=== PATIENT | female | born 1980 | race American Indian/Alaskan Native ===

== ENCOUNTER 2019-04-11 12:44 | Emergency (ER) | payer MEDICAID, SELFPAY ==
[2019-04-11] MEDS ORDERED: BOOSTRIX IM ONE (13:07)
--- NOTE | 2019-04-11 13:09 | Event Note ---
ED Screening Note Date of service: 04/11/19 Time: 13:06 ED Screening Note: This is a 38 y.o. F. that presents to the ER with laceration to left side of upper lip. Patient reports tripping up the stairs. Tetanus not UTD Denies loc Current marijuana smoker This initial assessment/diagnostic orders/clinical plan/treatment(s) is/are subject to change based on patients health status, clinical progression and re- assessment by fellow clinical providers in the ED. Further treatment and workup at subsequent clinical providers discretion. Patient/guardian urged not to elope from the ED as their condition may be serious if not clinically assessed and managed. Initial orders include:
[2019-04-11] MEDS ORDERED: IBUPROFEN PO ONE (14:01)
--- NOTE | 2019-04-11 14:24 | Emergency Department Report ---
ED Laceration HPI - HPI Chief Complaint: Multiple Trauma Stated Complaint: FACE INJURY Time Seen by Provider: 04/11/19 13:05 Occurred When: Today Severity: moderate Tetanus Status: Not up to Date Laceration Symptoms: Yes Pain, No Foreign Body Sensation, No Numbness, No W eakness Other History: This is a 38-year-old female who presents to ED complaining of sleep upstairs while she was going upstairs today. Patient states she lost her footing and slipped and fell and hit her upper lip on the step. She denies falling and, loss of consciousness or hitting her head. ED Review of Systems ROS: Stated complaint: FACE INJURY Other details as noted in HPI Comment: All other systems reviewed and negative ED Past Medical Hx - Past Medical History Previous Medical History?: No Hx Hypertension: No Hx CVA: No Hx Heart Attack/AMI: No Hx Congestive Heart Failure: No Hx Diabetes: No Hx Deep Vein Thrombosis: No Hx Pulmonary Embolism: No Hx GERD: No Hx Liver Disease: No Hx Renal Disease: No Hx of Cancer: No Hx Sickle Cell Disease: No Hx Arthritis: No Hx Headaches / Migraines: No Hx Seizures: No Hx Kidney Stones: No Hx Psychiatric Treatment: No Hx Asthma: No Hx COPD: No Hx Tuberculosis: No Hx Dementia: No Hx HIV: No - Surgical History Past Surgical History?: No Hx Coronary Stent: No Hx Open Heart Surgery: No Hx Pacemaker: No Hx Internal Defibrillator: No Hx Cholecystectomy: No Hx Appendectomy: No Hx Breast Surgery: No - Social History Smoking Status: Current Some Day Smoker Substance Use Type: None - Medications Home Medications: Home Medications Medication Instructions Recorded Confirmed Last Taken Type Ibuprofen [Motrin] 800 mg PO Q8HR #30 tablet 04/11/19 Unknown Rx cephALEXin [Keflex] 500 mg PO Q12HR #10 cap 04/11/19 Unknown Rx Laceration Physical Exam - Exam General: Vital signs noted. No distress. Alert and acting appropriately. Full Body Front + Back: 1 - small laceration about 1 cm to the area, bleeding controlled Laceration Exam: Yes Normal Distal CMS, No Foreign Body, No Exposed Tendon, Vessel, or Nerve, No Tendon Injury ED Course Vital Signs 04/11/19 13:06 Temperature 98.3 F Pulse Rate 84 Respiratory 15 Rate Blood Pressure 140/88 [Left] O2 Sat by Pulse 98 Oximetry ED Medical Decision Making - Medical Decision Making 38-year-old female presents with facial laceration from a slip and fall. The 1cm laceration wound was prepped and draped in sterile fashion. Anesthesia was achieved with 1mL of 1% lidocaine. The wound was irrigated with 100cc NS and explored. There were no foreign bodies The wound was reapproximated in 1 inner layer with continuous sutures suing with 3-0 absorbable Vicryl sutures in the dermis with There was excellent reapproximation of the wound edges. The patient tolerated the procedure without complication. Discussed with patient to follow up with primary care physician within 3-5 days. She received tetanus booster in the ED. Discussed with patient sutures. Resolve on their own. Vital signs are stable patient is in no acute distress Critical care attestation.: If time is entered above; I have spent that time in minutes in the direct care of this critically ill patient, excluding procedure time. ED Disposition Clinical Impression: Facial laceration Disposition: DC-01 TO HOME OR SELFCARE Is pt being admited?: No Does the pt Need Aspirin: No Condition: Stable Instructions: Suture Care (ED), Skin Adhesive Care (ED), Absorbable Suture Care (ED) Additional Instructions: Make sure to follow up with the primary care physician as discussed. Take all your medications as you've been prescribed. If you have any worsening symptoms or develop new symptoms please return to ED immediately. Prescriptions: cephALEXin [Keflex] 500 mg PO Q12HR #10 cap Ibuprofen [Motrin] 800 mg PO Q8HR #30 tablet Referrals: CIRA RODRIGUEZ MD [Primary Care Provider] - 3-5 Days [facility] [Outside] - 3-5 Days [facility] [Outside] - 3-5 Days Forms: Accompanied Note, Work/School Release Form(ED)
[2019-04-11 15:42] VITALS: BP 136/84
== END 2019-04-11 15:41 | disposition home or self-care (01) ==
LOC: ED 12:44
DX: S01.81XA Laceration without foreign body of other part of head, initial encounter (principal); F17.200 Nicotine dependence, unspecified, uncomplicated; W01.0XXA Fall on same level from slipping, tripping and stumbling without subsequent striking against object, initial encounter; Y93.89 Activity, other specified; Y92.89 Other specified places as the place of occurrence of the external cause; Y99.8 Other external cause status
CPT/HCPCS: 90471; 90715

== ENCOUNTER 2021-01-15 06:57 | Emergency (ER) | payer MEDICAID ==
[2021-01-15 07:32] VITALS: BP 153/104
[2021-01-15] MEDS ORDERED: ACETAMINOPHEN 325 MG TAB PO ONE (07:33)
[2021-01-15] MEDS ORDERED: IBUPROFEN 800 MG TAB PO ONE (07:33)
--- NOTE | 2021-01-15 07:37 | Emergency Department Report ---
ED General Adult HPI - General Chief complaint: Dental/Oral Stated complaint: TOOTH BROKEN/PAINFUL Time Seen by Provider: 01/15/21 07:21 Source: patient Mode of arrival: Ambulatory Limitations: No Limitations - History of Present Illness Initial comments: 40-year-old -Citizen Of [place] female patient presents with complaints of right lower dental pain x yesterday. Patient states swelling started late last night. She rates her current pain as a 9/10 in severity and states Tylenol is not helping. Patient states she has not contacted a dental specialist yet. She also reports that she has had a broken tooth in the area for some time. No fever/chills/sweats, dysphagia, or difficulty opening her jaw per patient. -: Sudden - Related Data Previous Rx's Medication Instructions Recorded Last Taken Type Ibuprofen [Motrin] 800 mg PO Q8HR #30 tablet 04/11/19 Unknown Rx cephALEXin [Keflex] 500 mg PO Q12HR #10 cap 04/11/19 Unknown Rx Acetaminophen/Codeine [Tylenol 1 tab PO Q8H PRN #10 tab 01/15/21 Unknown Rx /Codeine # 3 tab] Clindamycin [Clindamycin CAP] 300 mg PO Q6H 10 Days #40 capsule 01/15/21 Unknown Rx Ibuprofen [Motrin 800 MG tab] 800 mg PO Q8HR PRN #20 tablet 01/15/21 Unknown Rx predniSONE [Deltasone] 20 mg PO TID #6 tab 01/15/21 Unknown Rx Allergies Allergy/AdvReac Type Severity Reaction Status Date / Time No Known Allergies Allergy Verified 01/15/21 07:15 ED Review of Systems ROS: Stated complaint: TOOTH BROKEN/PAINFUL Other details as noted in HPI Constitutional: denies: chills, fever, malaise, weakness ENT: dental pain. denies: throat pain Cardiovascular: denies: chest pain Skin: denies: rash, lesions, change in color Neurological: denies: headache Hematological/Lymphatic: swollen glands ED Past Medical Hx - Past Medical History Hx Hypertension: No Hx CVA: No Hx Heart Attack/AMI: No Hx Congestive Heart Failure: No Hx Diabetes: No Hx Deep Vein Thrombosis: No Hx Pulmonary Embolism: No Hx GERD: No Hx Liver Disease: No Hx Renal Disease: No Hx Sickle Cell Disease: No Hx Arthritis: No Hx Headaches / Migraines: No Hx Seizures: No Hx Kidney Stones: No Hx Psychiatric Treatment: No Hx Asthma: No Hx COPD: No Hx Tuberculosis: No Hx Dementia: No Hx HIV: No - Surgical History Hx Coronary Stent: No Hx Open Heart Surgery: No Hx Pacemaker: No Hx Internal Defibrillator: No Hx Cholecystectomy: No Hx Appendectomy: No Hx Breast Surgery: No - Social History Smoking Status: Never Smoker Substance Use Type: None - Medications Home Medications: Home Medications Medication Instructions Recorded Confirmed Last Taken Type Ibuprofen [Motrin] 800 mg PO Q8HR #30 tablet 04/11/19 Unknown Rx cephALEXin [Keflex] 500 mg PO Q12HR #10 cap 04/11/19 Unknown Rx Acetaminophen/Codeine [Tylenol 1 tab PO Q8H PRN #10 tab 01/15/21 Unknown Rx /Codeine # 3 tab] Clindamycin [Clindamycin CAP] 300 mg PO Q6H 10 Days #40 capsule 01/15/21 Unknown Rx Ibuprofen [Motrin 800 MG tab] 800 mg PO Q8HR PRN #20 tablet 01/15/21 Unknown Rx predniSONE [Deltasone] 20 mg PO TID #6 tab 01/15/21 Unknown Rx ED Physical Exam - General Limitations: No Limitations General appearance: alert, in no apparent distress - Head Head exam: Present: atraumatic, normocephalic - Eye Eye exam: Present: normal appearance. Absent: scleral icterus - ENT ENT exam: Present: mucous membranes moist - Expanded ENT Exam Expanded Mouth exam: Absent: drooling, trismus, muffled voice Teeth exam: Present: dental caries, fractured tooth # 1 - Fractured, Dental Tenderness, Other (Moderate overlying swelling of the face and right submandibular area without erythema; no trismus noted) Throat exam: Positive: normal inspection - Neck Neck exam: Present: full ROM, lymphadenopathy (Right submandibular lymphad enopathy noted without trismus) - Respiratory Respiratory exam: Absent: respiratory distress - Cardiovascular Cardiovascular Exam: Present: regular rate - Neurological Exam Neurological exam: Present: alert, oriented X3, normal gait - Psychiatric Psychiatric exam: Present: normal affect, normal mood - Skin Skin exam: Present: warm, dry, intact, normal color. Absent: rash ED Medical Decision Making - Medical Decision Making 40-year-old -Citizen Of [place] female patient presents with complaints of right lower dental pain x yesterday. Patient states swelling started late last night. She rates her current pain as a 9/10 in severity and states Tylenol is not helping. Patient states she has not contacted a dental specialist yet. She also reports that she has had a broken tooth in the area for some time. No fever/chills/sweats, dysphagia, or difficulty opening her jaw per patient. Physical when history consistent with dental abscess, however head of abscess is not visualized on exam. Will treat with clindamycin and pain medication. Ronaldo bhatia provided with dental specialist list and informed to follow-up within 48 hours. Blood pressure noted to be elevated-patient denies history of hypertension. No neuro symptoms per patient. Recommend follow-up with PCP in 2 days for blood pressure recheck. Discussed signs and symptoms that should prompt immediate return to the emergency department in detail with patient who verbalizes understanding. Critical care attestation.: If time is entered above; I have spent that time in minutes in the direct care of this critically ill patient, excluding procedure time. ED Disposition Clinical Impression: Dental abscess, Elevated blood pressure reading Disposition: DC- TO HOME OR SELFCARE Is pt being admited?: No Condition: Stable Instructions: Dental Abscess, Hypertension, Adult Additional Instructions: Please follow up with your dental specialist within 2 days Prescriptions: Clindamycin [Clindamycin CAP] 300 mg PO Q6H 10 Days #40 capsule predniSONE [Deltasone] 20 mg PO TID #6 tab Ibuprofen [Motrin 800 MG tab] 800 mg PO Q8HR PRN #20 tablet PRN Reason: pain Acetaminophen/Codeine [Tylenol /Codeine # 3 tab] 1 tab PO Q8H PRN #10 tab PRN Reason: Pain , Severe (7-10) Referrals: [facility] [Provider Group] - 3-5 Days Forms: Work/School Release Form(ED)
== END 2021-01-15 07:49 | disposition home or self-care (01) ==
LOC: ED 06:57
DX: K04.7 Periapical abscess without sinus (principal); R03.0 Elevated blood-pressure reading, without diagnosis of hypertension; Z79.899 Other long term (current) drug therapy
CPT/HCPCS: 99282

== ENCOUNTER 2021-01-20 14:57 | Emergency (ER) | payer MEDICAID ==
[2021-01-20] MEDS ORDERED: IBUPROFEN 800 MG TAB ONE (17:27)
[2021-01-20] MEDS ORDERED: IBUPROFEN 800 MG TAB PO ONE (17:32)
--- NOTE | 2021-01-20 17:33 | Emergency Department Report ---
<G[place] - Last Filed: 01/20/21 21:02> ED General Adult HPI - General Chief complaint: Dental/Oral Stated complaint: SWOLLEN FACE/PAIN/CANT SWOLLOW ABSCESS Time Seen by Provider: 01/20/21 17:28 Source: patient Mode of arrival: Ambulatory Limitations: No Limitations - History of Present Illness Initial comments: 40-year-old -[place] female with no sniffing past medical history presents emerged department complaining of severe swelling and pain to the right lower mandible region that radiates down towards her neck with odynophagia and dysphagia and reports some with some mild drooling. And progressively worsening trouble opening her mouth. She reports no shortness of breath reports no fever, chills, sweats reports no no voice change. She reports no trauma reports no chest pain or palpitations. Radiation: non-radiation Consistency: constant Improves with: none Worsens with: none - Related Data Previous Rx's Medication Instructions Recorded Last Taken Type Ibuprofen [Motrin] 800 mg PO Q8HR #30 tablet 04/11/19 Unknown Rx cephALEXin [Keflex] 500 mg PO Q12HR #10 cap 04/11/19 Unknown Rx Acetaminophen/Codeine [Tylenol 1 tab PO Q8H PRN #10 tab 01/15/21 Unknown Rx /Codeine # 3 tab] Clindamycin [Clindamycin CAP] 300 mg PO Q6H 10 Days #40 capsule 01/15/21 Unknown Rx Ibuprofen [Motrin 800 MG tab] 800 mg PO Q8HR PRN #20 tablet 01/15/21 Unknown Rx predniSONE [Deltasone] 20 mg PO TID #6 tab 01/15/21 Unknown Rx Amoxicillin/Potassium Clav 1 each PO BID #20 tablet 01/20/21 Unknown Rx [Augmentin 875-125 Tablet] Chlorhexidine Mouthwash [Peridex] 15 ml MM BID #1 bottle 01/20/21 Unknown Rx Lidocaine Viscous 2% 5 ml MM Q3H PRN #120 udc 01/20/21 Unknown Rx predniSONE [Deltasone] 50 mg PO QDAY #3 tab 01/20/21 Unknown Rx Allergies Allergy/AdvReac Type Severity Reaction Status Date / Time No Known Allergies Allergy Verified 01/15/21 07:15 ED Review of Systems Comment: All other systems reviewed and negative ED Past Medical Hx - Past Medical History Previous Medical History?: No Hx Hypertension: No Hx CVA: No Hx Heart Attack/AMI: No Hx Congestive Heart Failure: No Hx Diabetes: No Hx Deep Vein Thrombosis: No Hx Pulmonary Embolism: No Hx GERD: No Hx Liver Disease: No Hx Renal Disease: No Hx Sickle Cell Disease: No Hx Arthritis: No Hx Headaches / Migraines: No Hx Seizures: No Hx Kidney Stones: No Hx Psychiatric Treatment: No Hx Asthma: No Hx COPD: No Hx Tuberculosis: No Hx Dementia: No Hx HIV: No - Surgical History Hx Coronary Stent: No Hx Open Heart Surgery: No Hx Pacemaker: No Hx Internal Defibrillator: No Hx Cholecystectomy: No Hx Appendectomy: No Hx Breast Surgery: No - Social History Smoking Status: Never Smoker Substance Use Type: None - Medications Home Medications: Home Medications Medication Instructions Recorded Confirmed Last Taken Type Ibuprofen [Motrin] 800 mg PO Q8HR #30 tablet 04/11/19 Unknown Rx cephALEXin [Keflex] 500 mg PO Q12HR #10 cap 04/11/19 Unknown Rx Acetaminophen/Codeine [Tylenol 1 tab PO Q8H PRN #10 tab 01/15/21 Unknown Rx /Codeine # 3 tab] Clindamycin [Clindamycin CAP] 300 mg PO Q6H 10 Days #40 capsule 01/15/21 Unknown Rx Ibuprofen [Motrin 800 MG tab] 800 mg PO Q8HR PRN #20 tablet 01/15/21 Unknown Rx predniSONE [Deltasone] 20 mg PO TID #6 tab 01/15/21 Unknown Rx Amoxicillin/Potassium Clav 1 each PO BID #20 tablet 01/20/21 Unknown Rx [Augmentin 875-125 Tablet] Chlorhexidine Mouthwash [Peridex] 15 ml MM BID #1 bottle 01/20/21 Unknown Rx Lidocaine Viscous 2% 5 ml MM Q3H PRN #120 udc 01/20/21 Unknown Rx predniSONE [Deltasone] 50 mg PO QDAY #3 tab 01/20/21 Unknown Rx ED Physical Exam - General Limitations: No Limitations General appearance: alert, in no apparent distress - Head Head exam: Present: atraumatic, normocephalic - Eye Eye exam: Present: normal appearance, PERRL, EOMI Pupils: Present: normal accommodation - ENT ENT exam: Present: normal exam, mucous membranes moist, other (Swelling to the right mandible region with palpation. Appears to be an abscess adjacent to teeth #1330. There is no drooling airway is patent. Tongue and uvula are midline. Swelling extends down to the mandible mandibular and submandibular region. Does not tenderness with palpation but no subcu) - Neck Neck exam: Present: normal inspection, tenderness (Right submandibular region), other (The subcutaneous emphysema or crepitus is noted) - Respiratory Respiratory exam: Present: normal lung sounds bilaterally. Absent: respiratory distress, rales, rhonchi, chest wall tenderness, accessory muscle use - Cardiovascular Cardiovascular Exam: Present: regular rate, normal rhythm. Absent: systolic murmur, diastolic murmur, rubs, gallop - GI/Abdominal GI/Abdominal exam: Present: soft, normal bowel sounds - Extremities Exam Extremities exam: Present: normal inspection - Back Exam Back exam: Present: normal inspection - Neurological Exam Neurological exam: Present: alert, oriented X3 - Psychiatric Psychiatric exam: Present: normal affect, normal mood - Skin Skin exam: Present: warm, dry, intact, normal color. Absent: rash ED Medical Decision Making - Lab Data Result diagrams: 01/20/21 17:34 01/20/21 17:34 - Medical Decision Making 40-year-old [place] male presents emerged from a swelling to her right mandible region. CT scan supports an abscess progressed to level 2 Pablo 7 airway compromising. Plan is to treat patient with antibacterial steroids and analgesic pain control. Have her follow-up with dentist within the next 2 to 3 days. ED Disposition Clinical Impression: Dental abscess Disposition: DC-01 TO HOME OR SELFCARE Is pt being admited?: No Does the pt Need Aspirin: No Condition: Stable Instructions: Dental Abscess Prescriptions: Amoxicillin/Potassium Clav [Augmentin 875-125 Tablet] 1 each PO BID #20 tablet predniSONE [Deltasone] 50 mg PO QDAY #3 tab Lidocaine Viscous 2% 5 ml MM Q3H PRN #120 udc PRN Reason: Pain, Moderate (4-6) Chlorhexidine Mouthwash [Peridex] 15 ml MM BID #1 bottle Referrals: PRIMARY CARE,MD [Primary Care Provider] - 3-5 Days [facility] [Outside] - 3-5 Days <JAZMYN ALVAREZ - Last Filed: 01/28/21 16:23> ED Review of Systems ROS: Stated complaint: SWOLLEN FACE/PAIN/CANT SWOLLOW ABSCESS Other details as noted in HPI ED Physical Exam - ENT ENT exam: Present: other ED Course Vital Signs 01/20/21 01/20/21 01/20/21 17:27 17:42 18:42 Temperature 99.1 F Pulse Rate 71 Respiratory 18 18 18 Rate Blood Pressure 182/100 [Right] O2 Sat by Pulse 100 Oximetry 01/20/21 01/20/21 01/20/21 22:08 22:12 22:14 Temperature Pulse Rate 90 Respiratory 18 20 18 Rate Blood Pressure 146/94 [Right] O2 Sat by Pulse 100 Oximetry ED Medical Decision Making - Lab Data Result diagrams: 01/20/21 17:34 01/20/21 17:34 - Medical Decision Making This patient was evaluated and dispositioned by the advanced practitioner. I was available for consultation. I was sent this chart for review and signature today, 01/28/2021. I reviewed the CT scan. I believe there is a dragon dictation error from the midlevel provider. There is some soft tissue swelling towards the submandibular region but there is no abscess formation in this location. No signs of Pablo's angina or airway compromise based on the CT and the midlevel's physical examination. Critical care attestation.: If time is entered above; I have spent that time in minutes in the direct care of this critically ill patient, excluding procedure time. ED Disposition Is pt being admited?: No
[2021-01-20 17:40] LABS: Basophils % (Auto) 0.3 % (0.0-1.8); Eosinophils # (Auto) 0.1 K/mm3 (0.0-0.4); Eosinophils % (Auto) 0.6 % (0.0-4.3); Hematocrit 37.4 % (30.3-42.9); Hemoglobin 12.1 gm/dl (10.1-14.3); Lymphocytes # (Auto) 1.5 K/mm3 (1.2-5.4); Lymphocytes % (Auto) 12.7 % (13.4-35.0); Mean Corpuscular HGB Conc 32 % (30-34); Mean Corpuscular Volume 91 fl (79-97); Monocytes # (Auto) 0.7 K/mm3 (0.0-0.8); Platelet Count 247 K/mm3 (140-440)
[2021-01-20 18:01] LABS: Blood Urea Nitrogen 9 mg/dL (7-17); Calcium 8.6 mg/dL (8.4-10.2); Hemolysis Index 30
[2021-01-20 18:10] LABS: BUN/Creatinine Ratio 15
--- NOTE | 2021-01-20 20:43 | Cat Scan Report ---
CT NECK WITH CONTRAST HISTORY: Right neck swelling COMPARISON: None. TECHNIQUE: Routine CT of the neck is performed following intravenous contrast. All CT scans at this [facility], [place] are performed using CT dose reduction for ALARA by means of automated exposure control CONTRAST: 100 mL Omnipaque 300 FINDINGS: Prominent soft tissue swelling is seen in the right side of the neck in the lamp cleaner street light images. Periapical abscess seen around the roots of tooth #31 (below the mylohyoid insertion) extending into the right submandibular space medially as well as laterally. In these images, no abscess formation is seen in the submandibular space. Soft tissue swelling is extending over the right cheek. Dental oliver es is also seen at both numbers 31. Airway is not compromised. Parapharyngeal space, slitting machine operator helper space and the sublingual space are normal on the right side. Skull Base: No significant abnormality. Parotid, Carotid, Retropharyngeal, Prevertebral, Pharyngeal Mucosal, and Fire Boss Spaces: Soft tiss ue swelling in the right submandibular space; calcified calculus near the hilum of the left submandib ular gland; left Warthin's duct is not obstructed Airway: Patent and without significant abnormality. Lymphatics: No lymphadenopathy. Vasculature: No significant abnormality. Osseous Structures: No significant abnormality Additional findings: None. IMPRESSION: Dental caries and periapical abscess around tooth #31 (below the mylohyoid line) extending into the buccal and lingual portions of the right submandibular space Signer Name: Kellen Estrada MD Signed: 01/20/2021 8:39 PM Workstation Name: [id number]
[2021-01-20] MEDS ORDERED: AMOXICILLIN/K CLAV 875/125MG TAB PO STA (21:53)
[2021-01-20] MEDS ORDERED: oxyCODONE /ACETAMINOPHEN 5-325MG TAB PO ONE (21:53)
[2021-01-20 22:13] VITALS: BP 146/94
== END 2021-01-20 22:14 | disposition home or self-care (01) ==
LOC: ED 14:57
DX: K04.7 Periapical abscess without sinus (principal); Z79.1 Long term (current) use of non-steroidal anti-inflammatories (NSAID); Z79.899 Other long term (current) drug therapy
CPT/HCPCS: 36415; 70491; 80048; 82140; 85025; 99284; Q9967